=== PATIENT | male | born 1930 | race Caucasian/White ===

== ENCOUNTER 2016-04-05 12:36 | Day surgery (SDC) | payer OTHER ==
[~2016-04-05] VITALS: Ht 188 cm; Wt 73.5 kg
[2016-04-05] VITALS (9 sets, daily range): BP systolic 149–160; BP diastolic 62–67; PULSE 69–95; RESP 18–20; TEMP 98–98.6; O2SAT 94–98
[~2016-04-05 12:36] MED LIST: ALBU6.7H INH; ASPI81TA21 PO; ATOR20TA PO; BUSP5 PO; GLIP5 PO; HYZA100T4 PO; ISOS30TA3 PO; LIPI20TA PO; MECL25 PO; MOME17I; NITR0.4S SL; NORV10TA PO; OMEP20TA PO
[2016-04-05] MEDS ORDERED: POVIDONE IODINE 5% (ANTISEPSIS KIT) 4 APPLICATIONS EACH NARE SCH (13:00)
[2016-04-05] MEDS ORDERED: LACTATED RINGER'S 1000 ML IV SCH (13:00)
[2016-04-05] MEDS ORDERED: CHLORHEXIDINE GLUCONATE 2 % 1 PACK (2 CLOTHS) TOP SCH (13:00)
[2016-04-05] MEDS ORDERED: METOPROLOL TARTRATE 25 MG TAB PO PRN (13:00)
[2016-04-05] MEDS ORDERED: NS 1000 ML IV SCH (13:00)
[2016-04-05] MEDS ORDERED: SODIUM CHLORID 0.9% 500 ML IV SCH (13:00)
[2016-04-05] MEDS ORDERED: ceFAZolin 2 GM PREMIX 50 ML IV SCH (13:00)
[2016-04-05] MEDS ORDERED: INSULIN HUMAN REGULAR 1,000 UNITS/10 ML VIAL SQ PRN (13:00)
[2016-04-05] MEDS ORDERED: MUPIROCIN 2% OINT 1 APPLIC/GM SYR NASAL SCH (13:00)
[2016-04-05] MEDS ORDERED: FINA5TAB2 PO (13:26)
[2016-04-05] MEDS ORDERED: ASPI1TAB69 PO (13:26)
[2016-04-05] MEDS ORDERED: AMLO10TA2 PO (13:26)
[2016-04-05] MEDS ORDERED: GLIP5TAB8 PO (13:26)
[2016-04-05] MEDS ORDERED: PANT40TA3 PO (13:28)
[2016-04-05] MEDS ORDERED: LOSA50TA PO (13:28)
[2016-04-05] MEDS ORDERED: MIRT30TA PO (13:28)
[2016-04-05] MEDS ORDERED: SODIUM CHLOR 0.9% 250 ML INJ 250 ML ONE (13:28)
[2016-04-05] MEDS ORDERED: LIPI20TA PO (13:28)
[2016-04-05] MEDS ORDERED: MECL25CH CHEW (13:28)
[2016-04-05] MEDS ORDERED: TAMS0.4C4 PO (13:28)
[2016-04-05 13:35] LABS: AUTOMATED NEUTROPHIL # 6.7 TH/MM3 (1.8-7.7); BASOPHIL # 0.1 TH/MM3 (0-0.2); BASOPHIL % 0.6 % (0.0-2.0); EOSINOPHIL # 0.4 TH/MM3 (0-0.4); EOSINOPHIL % 3.9 % (0.0-4.0); HEMATOCRIT 39.1 % (39.0-51.0); HEMO FLAGS DIFF FINAL; LYMPH % 20.1 % (9.0-44.0); LYMPHOCYTE # 2.1 TH/MM3 (1.0-4.8); MEAN CELL VOLUME 89.6 FL (80.0-100.0); MEAN CORPUSCULAR HEMOGLOBIN 30.9 PG (27.0-34.0); MEAN CORPUSCULAR HGB CONC 34.5 % (32.0-36.0); MONO % 10.7 % (0.0-8.0); NEUT % 64.7 % (16.0-70.0); PLATELET COUNT 313 TH/MM3 (150-450); RED BLOOD COUNT 4.37 MIL/MM3 (4.50-5.90); RED CELL DISTRIBUTION WIDTH 14.5 % (11.6-17.2); WHITE BLOOD COUNT 10.4 TH/MM3 (4.0-11.0)
[2016-04-05 13:54] LABS: PROTHROMBIN TIME - PATIENT 10.4 SEC (9.8-11.6)
[2016-04-05 13:55] LABS: APTT (PATIENT) 26.1 SEC (24.3-30.1); INTERNATIONAL NORMALIZED RATIO 0.9 RATIO
[2016-04-05] MEDS ORDERED: PROPOFOL 200 MG/20 ML AMP IV ONE (15:41)
[2016-04-05] MEDS ORDERED: LIDOCAINE HCL 2% 50 ML VIAL ONE (15:43)
[2016-04-05] MEDS ORDERED: VANCOMYCIN HCL 1000 MG VIAL ONE (15:44)
[2016-04-05] MEDS ORDERED: ceFAZolin INJ 1,000 MG VIAL ONE (15:44)
[2016-04-05 16:51] LABS: POTASSIUM 4.3 MEQ/L (3.5-5.1)
[2016-04-05] MEDS ORDERED: ZOLPIDEM TARTRATE 5 MG TAB PO PRN (17:15)
--- NOTE | 2016-04-05 17:50 | RADRPT ---
EXAM DATE/TIME: 04/05/2016 17:25 [place] COMPARISON: No previous studies available for comparison. INDICATIONS : Post pacemaker placement. Evaluate for pneumothorax. MEDICAL HISTORY : None. SURGICAL HISTORY : None. ENCOUNTER: Initial ACUITY: 1 day PAIN SCORE: 0/10 LOCATION: Right chest FINDINGS: The cardiac silhouette is enlarged in transverse diameter. The lungs are free of acute parenchymal op acity. No effusions are identified. A bipolar pacemaker is in place via a right sided approach. There is no evidence of pneumothorax. Calcified granuloma is present in the right lung. There is prominen ce of the aortic knob is with calcification characteristic of atherosclerotic vascular disease. CONCLUSION: 1. There is no evidence of pneumothorax. Branden Roberts MD on April 05, 2016 at 17:48 Board Certified Radiologist. This report was verified electronically.
[2016-04-05] MEDS ORDERED: ATORVASTATIN 20 MG TAB PO SCH (21:00)
[2016-04-05] MEDS ORDERED: TAMSULOSIN HCL 0.4 MG CAP PO SCH (21:00)
[2016-04-05] MEDS ORDERED: MIRTAZAPINE 15 MG TAB PO SCH (21:00)
[2016-04-06] MEDS: traMADol HCL 50 MG TAB PO PRN ×2 (02:23→09:06)
[2016-04-06 03:00] VITALS: BP 160/67; PULSE 70; RESP 16; TEMP 98.4; O2SAT 98
[2016-04-06] MEDS ORDERED: VANCOMYCIN INJ 1,000 MG in SODIUM CHLOR 0.9% 250 ML INJ 250 ML IV ONE (05:30)
[2016-04-06 07:30] VITALS: BP 118/47; PULSE 71; PULSE 74; RESP 14; TEMP 98.4; O2SAT 94
[2016-04-06 07:57] VITALS: BP 118/47; PULSE 71; RESP 14; TEMP 98.5; O2SAT 94
--- NOTE | 2016-04-06 08:31 | PD.CARD.PN ---
Subjective Subjective Remarks Moderate incisional pain. Slept poorly. No dyspnea, angina. Objective Medications Item Value Date Time Amlodipine 10 mg 04/06/16 0900 Besylate DAILY/PO (Norvasc) Aspirin 81 mg 04/06/16 0900 (Ecotrin Ec) DAILY/PO Losartan Potassium 50 mg 04/06/16 0900 (Cozaar) DAILY/PO Atorvastatin 20 mg 04/05/16 2100 Calcium HS/PO 04/05/166 (Lipitor) Vital Signs / I&O Vital Signs Date Time Temp Pulse Resp B/P Pulse Ox O2 Delivery O2 Flow Rate FiO2 04/06/16 07:57 98.5 71 14 118/47 94 04/06/16 07:30 74 04/06/16 07:30 98.4 71 14 118/47 94 04/06/16 03:00 98.4 70 16 160/67 98 04/05/16 23:00 98.6 75 18 153/62 96 04/05/16 23:00 75 04/05/16 20:00 72 04/05/16 20:00 98.5 72 18 160/64 98 04/05/16 18:45 77 20 152/67 94 04/05/16 18:30 98.0 73 20 153/66 94 04/05/16 18:16 72 04/05/16 18:15 69 20 153/67 94 04/05/16 18:00 98.4 95 20 149/66 95 04/05/16 17:46 98.4 70 20 153/67 95 04/05/16 13:20 98.2 75 20 159/66 95 I/O 04/05/16 04/05/16 04/05/16 04/06/16 04/06/16 04/06/16 07:00 15:00 23:00 07:00 15:00 23:00 Intake Total 730 ml Output Total 1350 ml Balance -620 ml Intake Oral 480 ml IV Total 250 ml Output Urine Total 1350 ml Physical Exam Incision site intact, dry, small hematoma, minimal tenderness, no warmth. Laboratory Laboratory Tests Test 04/05/16 04/05/16 13:15 15:38 White Blood Count 10.4 TH/MM3 Red Blood Count 4.37 MIL/MM3 Hemoglobin 13.5 GM/DL Hematocrit 39.1 % Mean Corpuscular Volume 89.6 FL Mean Corpuscular Hemoglobin 30.9 PG Mean Corpuscular Hemoglobin 34.5 % Concent Red Cell Distribution Width 14.5 % Platelet Count 313 TH/MM3 Mean Platelet Volume 7.9 FL Neutrophils (%) (Auto) 64.7 % Lymphocytes (%) (Auto) 20.1 % Monocytes (%) (Auto) 10.7 % Eosinophils (%) (Auto) 3.9 % Basophils (%) (Auto) 0.6 % Neutrophils # (Auto) 6.7 TH/MM3 Lymphocytes # (Auto) 2.1 TH/MM3 Monocytes # (Auto) 1.1 TH/MM3 Eosinophils # (Auto) 0.4 TH/MM3 Basophils # (Auto) 0.1 TH/MM3 CBC Comment DIFF FINAL Differential Comment Prothrombin Time 10.4 SEC Prothromb Time International 0.9 RATIO Ratio Activated Partial 26.1 SEC Thromboplast Time Sodium Level 140 MEQ/L Potassium Level 4.3 MEQ/L Chloride Level 107 MEQ/L Carbon Dioxide Level 26.0 MEQ/L Anion Gap 7 MEQ/L Blood Urea Nitrogen 21 MG/DL Creatinine 1.07 MG/DL Estimat Glomerular Filtration 65 ML/MIN Rate Random Glucose 128 MG/DL Calcium Level 8.9 MG/DL Assessment and Plan Problem List: (1) Status post placement of cardiac pacemaker Assessment and Plan: Stable overnight. Post op CXR without PNTX. Pacer site with mild hematoma, ecchymosis. Pacer re-interrogation shows stable, good pacing parameters. To discharge home today, same home medications plus Lortab PRN and Levaquin 500 mg qd for 7 days, one week f/u in our office for another wound check. (2) CAD (coronary artery disease) Assessment and Plan: Stable CAD status. No recent angina. Cont medical therapy. Code Status full code Discussed Condition With patient Problem Qualifiers (1) CAD (coronary artery disease): Qualified Code: I25.10 - Coronary artery disease involving [place] coronary artery of [place] heart without angina pectoris Emerson Jasso MD Apr 06, 2016 08:31
[2016-04-06] MEDS ORDERED: LEVA500T PO (08:35)
[2016-04-06] MEDS ORDERED: HYDR-3534 PO (08:35)
[2016-04-06] MEDS ORDERED: FINASTERIDE 5 MG TAB PO SCH (09:00)
[2016-04-06] MEDS ORDERED: PANTOPRAZOLE SOD 40 MG DELAYED RELEASE TAB PO SCH (09:00)
[2016-04-06] MEDS ORDERED: glipiZIDE 5 MG TAB PO SCH (09:00)
[2016-04-06] MEDS ORDERED: ASPIRIN EC 81 MG TABEC PO SCH (09:00)
[2016-04-06] MEDS ORDERED: LOSARTAN 50 MG TAB PO SCH (09:00)
[2016-04-06] MEDS ORDERED: SODIUM CHLORIDE FLUSH PRN IVF (10:00)
[2016-04-06 11:03] VITALS: PULSE 87
[2016-04-06 11:47] VITALS: BP 120/58; PULSE 74; RESP 16; TEMP 98.6; O2SAT 96
--- NOTE | 2016-04-06 17:29 | EKG ---
Date Performed: 04/05/2016 Time Performed: 13:32:42 PTAGE: 85 years EKG: Sinus rhythm LVH with secondary repolarization abnormality Lateral ST-T changes may be due to hypertrophy and/or ischemia Since previous tracing, no significant change noted Abnormal ECG PREVIOUS TRACING : 06/19/2015 11.58 DOCTOR: Paul Whitney Interpretating Date/Time 04/06/2016 17:28:42
--- NOTE | 2016-04-06 20:36 | MP ---
cc: MAMADOU SHETTY GLENN H. MD DATE OF SURGERY 04/05/16 PROCEDURE Dual-chamber permanent pacemaker implantation via the right subclavian vein. INDICATIONS Symptomatic sick sinus syndrome. OPERATIVE NOTE The patient was brought to the operating suite in a fasting state after having signed informed consent. The right upper chest was prepped and draped as per policy and anesthetized with 1% lidocaine. Central venous access was obtained via the right subclavian vein using a modified Seldinger technique twice without difficulty. A transverse incision was made inferior to the right clavicle and, using blunt dissection, a subcutaneous pocket was formed down to the pectoralis fascia. Over the more lateral guidewire, a 7-Nigerian sheath was placed and through this sheath a ventricular active fixation lead was introduced and its tip positioned in the right ventricular apex where good current of injury, stimulation threshold (0.6 volts) and sensitivity (8.4 mV) were demonstrated. This lead was secured into place using 2-0 silk ties down to the pectoralis fascia. Over the remaining guidewire, another 7-Nigerian sheath was placed and through this sheath an atrial active fixation lead was introduced and its tip positioned in the right atrial appendage where good current of injury, stimulation threshold (1.2 volts) and sensitivity (5.3 mV) were verified. This lead was secured into place using 2-0 silk ties down to the pectoralis fascia. The leads were then connected to the pacemaker generator which is a Biotronik Eluna device. The leads and the generator were placed back into the subcutaneous pocket which was closed using 3-0 Vicryl interrupted stitches in two layers to close the subcutaneous tissue and then 4-0 Monocryl running stitch to close the subcuticular tissue. Overlapping Steri-Strips and a pressure dressing were applied. There were no apparent immediate complications. A portable chest x-ray is pending at the time of this dictation. CONCLUSION Successful dual-chamber permanent pacemaker implantation via the right subclavian vein using a Biotronik Eluna pacemaker generator. MD ARIK Jon/ /5:01 PM /8:20 PM [facility]
== END 2016-04-06 11:47 | disposition home or self-care (01) ==
LOC: HDOC 12:36 → HDIC 12:38 → HCIS 17:24 → HDOC 04-06 11:47
PROVIDERS: ATTEND Internal Medicine Cardiovascular Disease
DX: I49.5 Sick sinus syndrome (principal); I49.9 Cardiac arrhythmia, unspecified; I25.10 Atherosclerotic heart disease of native coronary artery without angina pectoris; I10 Essential (primary) hypertension; E11.9 Type 2 diabetes mellitus without complications; R42 Dizziness and giddiness; F17.210 Nicotine dependence, cigarettes, uncomplicated; Z82.49 Family history of ischemic heart disease and other diseases of the circulatory system
CPT/HCPCS: 33208; 33284; 71010; 80048; 85025; 85610; 85730; 93005; C1785; C1898; J0690; J3370; J7050

== ENCOUNTER 2016-07-10 06:33 | Emergency (ER) | payer OTHER ==
[~2016-07-10] VITALS: Ht 188 cm; Wt 80.0 kg
[~2016-07-10 06:33] MED LIST changes: -ALBU6.7H INH; +AMLO10TA2 PO; +ASPI1TAB69 PO; -ASPI81TA21 PO; -ATOR20TA PO; -BUSP5 PO; +FINA5TAB2 PO; -GLIP5 PO; +GLIP5TAB8 PO; +HYDR-3534 PO; -HYZA100T4 PO; -ISOS30TA3 PO; +LEVA500T PO; +LOSA50TA PO; -MECL25 PO; +MECL25CH CHEW; +MIRT30TA PO; -MOME17I; -NITR0.4S SL; -NORV10TA PO; -OMEP20TA PO; +PANT40TA3 PO; +TAMS0.4C4 PO
[2016-07-10 06:36] VITALS: BP 129/61; PULSE 93; RESP 16; TEMP 97.5; O2SAT 96
--- NOTE | 2016-07-10 07:20 | PD ---
HPI Chief Complaint: Senior Mechanical Design Engineer Problem Time Seen by Provider: 07:06 Travel History International Travel<30 days: No Contact w/Intl Traveler<30days: No Traveled to known affect area: No History of Present Illness HPI The patient's 85 years old and arrives with urinary retention which evolved over the course of the evening. Several days prior the patient underwent a " uro lift" procedure by Dr Mendez. Thereafter he developed urinary retention and a Donahue catheter is placed in the office. He reports constant pressure- like pain in the pelvic abdomen. It's worse with palpation. He describes the urge to void. He's had no nausea vomiting fever or chills. No back pain. He has some prescribed pain medication and took one tablet last night and once again this morning which has conferred minimum relief. PFSH Past Medical History Cancer: Yes Cardiovascular Problems: Yes (PACE MAKER, HTN) Diabetes: Yes Patient Takes Glucophage: No Hypertension: Yes Respiratory: Yes Past Surgical History Appendectomy: Yes Other Surgery: Yes (VASCULAR) Social History Alcohol Use: Yes (RARE) Tobacco Use: Yes (1 PPD) Substance Use: No Allergies-Medications (Allergen,Severity, Reaction): Coded Allergies: No Known Allergies (Unverified , 07/10/16) Reported Meds & Prescriptions Reported Meds & Active Scripts Active Lortab (Hydrocodone-Acetaminophen) 7.5-325 Mg Tab 1-2 Tab PO Q6H PRN 5 Days Levaquin (Levofloxacin) 500 Mg Tab 500 Mg PO DAILY 7 Days Reported Tamsulosin (Tamsulosin HCl) 0.4 Mg Cap 0.4 Mg PO HS Pantoprazole (Pantoprazole Sodium) 40 Mg Tab 40 Mg PO DAILY Mirtazapine 30 Mg Tab 30 Mg PO HS Meclizine (Meclizine HCl) 25 Mg Chew 25 Mg CHEW DIRECTED PRN Losartan (Losartan Potassium) 50 Mg Tab 50 Mg PO DAILY Lipitor (Atorvastatin Calcium) 20 Mg Tab 20 Mg PO HS Glipizide 5 Mg Tab 2.5 Mg PO DAILY Take 30 minutes before a meal Finasteride 5 Mg Tab 5 Mg PO DAILY Do not crush. Aspirin 81 Mg Tabdr 81 Mg PO DAILY Amlodipine (Amlodipine Besylate) 10 Mg Tab 10 Mg PO DAILY Review of Systems Except as stated in HPI: all other systems reviewed are Neg General / Constitutional: No: Fever Physical Exam Narrative GENERAL: 85-year-old male well-nourished well-developed mild to moderate distress secondary to pain SKIN: Focused skin assessment warm/dry. HEAD: Atraumatic. Normocephalic. EYES: Pupils equal and round. No scleral icterus. No injection or drainage. ENT: No nasal bleeding or discharge. Mucous membranes pink and moist. NECK: Trachea midline. No JVD. CARDIOVASCULAR: Regular rate and rhythm. No murmur appreciated. RESPIRATORY: No accessory muscle use. Clear to auscultation. Breath sounds equal bilaterally. GASTROINTESTINAL: Fullness in the lower abdomen moderate tenderness to palpation. No flank tenderness. : Dark urine in Donahue leg bag. MUSCULOSKELETAL: No obvious deformities. No clubbing. No cyanosis. No edema. NEUROLOGICAL: Awake and alert. No obvious cranial nerve deficits. Motor grossly within normal limits. Normal speech. PSYCHIATRIC: Appropriate mood and affect; insight and judgment normal. Data Data Last Documented VS Vital Signs Date Time Temp Pulse Resp B/P Pulse Ox O2 Delivery O2 Flow Rate FiO2 07/10/16 06:36 97.5 93 16 129/61 96 Room Air VS reviewed Orders Urinalysis - C+S If Indicated (07/10/16 07:20) Urinary Catheter Insert/Apply (07/10/16 07:38) Bladder Scan PRN (07/10/16 07:38) Labs Laboratory Tests Test 07/10/16 07:30 Urine Color LIGHT-YELLOW Urine Turbidity CLEAR Urine pH 5.5 Urine Specific Williams 1.005 Urine Protein NEG mg/dL Urine Glucose (UA) NEG mg/dL Urine Ketones NEG mg/dL Urine Occult Blood MOD Urine Nitrite NEG Urine Bilirubin NEG Urine Urobilinogen LESS THAN 2.0 MG/DL Urine Leukocyte Esterase TRACE Urine RBC 10 /hpf Urine WBC 2 /hpf Urine Squamous Epithelial <1 /hpf Cells Microscopic Urinalysis Comment CULT NOT INDICATED MDM Medical Decision Making Medical Screen Exam Complete: Yes Emergency Medical Condition: Yes Medical Record Reviewed: Yes Differential Diagnosis Hematuria, UTI, medication side effect, BPH, clot obstruction of the lumen of Donahue Narrative Course The Donahue was replaced and a large clot was found in the fenestration at the catheter tip. Patient then voided about 400 cc of clear urine into a urinal. A bladder scan was performed and revealed 400 cc void residual. The Donahue catheter was placed. The patient will follow-up with Dr. Mendez in the next few days. He is to continue PO abx, which the patient believes is Levaquin. Reassessment at 817am pt reports feeling much better and states he's ready to go home. 900cc clear yellow urine in donahue bag with one approx [id number] clot. leg bag. RN instructions for flushing at home. pt ready for discharge. he verbalized understanding for return precautions. Diagnosis Primary Impression: Obstructed Donahue catheter Qualified Code: T83.091A - Obstructed Donahue catheter, initial encounter Additional Impression: Hematuria Referrals: Urologist 2 days Additional Instructions: You have a choice when it comes to health care, and we are glad that you chose [facility]. Hopefully, we have met your expectations on today's visit. You are welcome to return to [facility] at any time, as we are committed to meeting the health care needs of our community. Med/Other Pt SpecificInfo: No Change to Meds Disposition: 01 DISCHARGE HOME Condition: Stable Francisco Dawson MD July 10, 2016 07:20
[2016-07-10 08:11] LABS: BLOOD, URINE MOD (NEG); COMMENT (UR) CULT NOT INDICATED; CULTURE IF INDICATED CULT NOT INDICATED; GLUCOSE,URINE NEG (NEG); KETONE, URINE NEG (NEG); NITRITE,URINE NEG (NEG); PH, URINE 5.5 (5.0-8.5); SQUAMOUS EPITHELIAL CELL URINE <1 /hpf (0-5); URINE COLOR LIGHT-YELLOW (YELLW/STRAW)
[2016-07-10 08:51] VITALS: BP 143/72
== END 2016-07-10 08:52 | disposition home or self-care (01) ==
LOC: NEPC 06:33
DX: T83.091A Other mechanical complication of indwelling urethral catheter, initial encounter (principal); R31.9 Hematuria, unspecified; I10 Essential (primary) hypertension; E11.9 Type 2 diabetes mellitus without complications; F17.210 Nicotine dependence, cigarettes, uncomplicated
CPT/HCPCS: 51702; 81001